=== PATIENT | female | born 1990 | race Caucasian/White ===

== ENCOUNTER 2017-01-12 18:02 | Emergency (ER) | payer BC ==
[2017-01-12] MEDS ORDERED: Sodium Chloride 0.9% 1,000 ML IV ONE (18:07)
[2017-01-12] MEDS ORDERED: Ondansetron 4 MG/2 ML SDV IVPUSH ONE (18:07)
--- NOTE | 2017-01-12 18:08 | EDM.PDOC ---
[id number] Chief Complaint: Abdominal Pain Stated Complaint: PT HAS STOMACH PAINS Time Seen by Provider: 01/12/17 18:07 - History of Present Illness INITIAL COMMENTS - FREE TEXT/NARRATIVE: This is Dr. Kim dictating an addendum note as I'm assuming care of this patient at 7 PM. The patient tells me that her pain is suprapubic and right lower abdomen area and started suddenly 3 days ago and has been intermittent in intensity. She has not had fever chills nausea vomiting dysuria frequency hematuria flank pain or pelvic discharge. The patient is in a monogamous relationship and had an IUD placed in May this year. She said she was tested for all STDs in May and was negative and has no concerns about STDs. She has no vaginal bleeding or periods with her IUD. His been eating and drinking normally and is not taking any medication for the pain. Her last sexual intercourse was last week and does not coincide with the onset of the pain. She has no gynecologic history such as ovarian cysts or endometriosis. The patient describes the pain as dull and barely present when she's sitting still but with certain movements such as walking and straightening it out in bed the pain intensifies. It does not radiate to the left or to the upper abdomen areas. She has no surgical history except for the IUD placement and a procedure on her cervix. She does have a history of HPV. The patient has no back pain. On physical exam she has some tenderness on deep palpation in the right lower quadrant and suprapubically but there is nothing on the left side and nothing in the upper abdomen. She has no CVA tenderness. The patient prefers to sit in bed with her knee slightly bent but is able to move easily without distress. I have seen her lab results were CBC CMP amylase and lipase which are within normal limits. She is currently going to produce a urine sample and is scheduled to go for pelvic ultrasound. I will give her a dose of Toradol as well as IV fluids and she received Zofran earlier. I will continue to monitor these results the patient's course while in the ED. I discussed all testing results with the patient as well as discussed the ultrasound with both the administrative tech and the radiologist Dr. Saxena. It was reported to me by the tach that the patient had a lot of free fluid in that right lower quadrant area but the radiologist felt that it was within normal limits just slightly at the upper margin. The radiologist thought that maybe there was increased vascular congestion consistent with pelvic congestion syndrome but he did not have enough images to evaluate this. The patient does say that the pain does wax and wane and that yesterday she had minimal pain. She does have a scheduled appointment with her molding machine operator in [place] in 6 days so she will follow-up with him and I will give her a disc of her ultrasound here. I will give her Naprosyn for home and have advised her on reasons to return to the ED. I did discuss and offer the patient a CT scan to possibly evaluate other etiologies but she and I discussed that she would like to refrain from this as she has not had a fever anorexia and has no elevated WBC count and the pain has not been consistent. She would like to defer the CAT scan and less symptoms worsen. Impression: Right pelvic pain rule out ruptured ovarian cyst or cystic pelvic congestion syndrome lower abdominal Pain Score (Numeric/FACES): 8 - Related Data Allergies Allergy/AdvReac Type Severity Reaction Status Date / Time amoxicillin Allergy Cannot Verified 01/12/17 18:22 Remember Home Meds: Home Meds . [No Known Home Meds] 01/12/17 [History] ED ROS GENERAL - Review of Systems Review Of Systems: ROS reveals no pertinent complaints other than HPI. ED EXAM, GENERAL - Physical Exam Exam: See Below (See dictation) Course - Vital Signs Last Recorded V/S: Last Vital Signs Temp 36.6 C 01/12/17 21:01 Pulse 73 01/12/17 21:01 Resp 14 01/12/17 21:01 BP 107/68 01/12/17 21:01 Pulse Ox 100 01/12/17 21:01 - Orders/Labs/Meds Labs: Laboratory Tests 01/12/17 01/12/17 01/12/17 Range/Units 18:15 18:15 19:10 WBC 6.53 (4.0-11.0) K/uL RBC 4.21 L (4.30-5.90) M/uL Hgb 12.4 (12.0-16.0) g/dL Hct 36.9 (36.0-46.0) % MCV 87.6 (80.0-98.0) fL MCH 29.5 (27.0-32.0) pg MCHC 33.6 (31.0-37.0) g/dL RDW Std Deviation 40.3 (28.0-62.0) fl RDW Coeff of Roz 13 (11.0-15.0) % Plt Count 175 (150-400) K/uL MPV 10.90 (7.40-12.00) fL Neut % (Auto) 65.3 (48.0-80.0) % Lymph % (Auto) 22.4 (16.0-40.0) % [place] % (Auto) 8.7 (0.0-15.0) % Eos % (Auto) 3.1 (0.0-7.0) % Baso % (Auto) 0.5 (0.0-1.5) % Neut # (Auto) 4.3 (1.4-5.7) K/uL Lymph # (Auto) 1.5 (0.6-2.4) K/uL [place] # (Auto) 0.6 (0.0-0.8) K/uL Eos # (Auto) 0.2 (0.0-0.7) K/uL Baso # (Auto) 0.0 (0.0-0.1) K/uL Nucleated RBC % 0.0 /100WBC Nucleated RBCs # 0 K/uL Sodium 139 (136-146) mmol/L Potassium 3.9 (3.5-5.1) mmol/L Chloride 107 (98-110) mmol/L Carbon Dioxide 22 (21-31) mmol/L BUN 9 (6.0-23.0) mg/dL Creatinine 0.7 (0.6-1.5) mg/dL Est Cr Clr Drug Dosing TNP Estimated GFR (MDRD) > 60.0 ml/min Glucose 88 (60-110) mg/dL Calcium 9.0 (8.8-10.8) mg/dL Total Bilirubin 0.5 (0.1-1.5) mg/dL AST 15 (5-40) IU/L ALT 13 (8-54) IU/L Alkaline Phosphatase 47 (40-150) Total Protein 7.7 (6.0-8.0) g/dL Albumin 4.2 (3.5-5.0) g/dL Globulin 3.5 (2.0-3.5) g/dL Albumin/Globulin Ratio 1.2 L (1.3-2.8) Amylase 38 (10-90) U/L Lipase 8 (7-80) U/L Urine Color Urine Appearance Urine pH (5.0-8.0) Ur Specific [place] (1.001-1.035) Urine Protein (NEGATIVE) mg/dL Urine Glucose (UA) (NEGATIVE) mg/dL Urine Ketones (NEGATIVE) mg/dL Urine Occult Blood (NEGATIVE) Urine Nitrite (NEGATIVE) Urine Bilirubin (NEGATIVE) Urine Urobilinogen (<2.0) EU/dL Ur Leukocyte Esterase (NEGATIVE) Urine RBC (0-2/HPF) Urine WBC (0-5/HPF) Ur Epithelial Cells (NONE-FEW) Amorphous Sediment (NEGATIVE) Urine Bacteria (NEGATIVE) Urine HCG, Qual NEGATIVE (NEGATIVE) 01/12/17 Range/Units 19:10 WBC (4.0-11.0) K/uL RBC (4.30-5.90) M/uL Hgb (12.0-16.0) g/dL Hct (36.0-46.0) % MCV (80.0-98.0) fL MCH (27.0-32.0) pg MCHC (31.0-37.0) g/dL RDW Std Deviation (28.0-62.0) fl RDW Coeff of Roz (11.0-15.0) % Plt Count (150-400) K/uL MPV (7.40-12.00) fL Neut % (Auto) (48.0-80.0) % Lymph % (Auto) (16.0-40.0) % [place] % (Auto) (0.0-15.0) % Eos % (Auto) (0.0-7.0) % Baso % (Auto) (0.0-1.5) % Neut # (Auto) (1.4-5.7) K/uL Lymph # (Auto) (0.6-2.4) K/uL [place] # (Auto) (0.0-0.8) K/uL Eos # (Auto) (0.0-0.7) K/uL Baso # (Auto) (0.0-0.1) K/uL Nucleated RBC % /100WBC Nucleated RBCs # K/uL Sodium (136-146) mmol/L Potassium (3.5-5.1) mmol/L Chloride (98-110) mmol/L Carbon Dioxide (21-31) mmol/L BUN (6.0-23.0) mg/dL Creatinine (0.6-1.5) mg/dL Est Cr Clr Drug Dosing Estimated GFR (MDRD) ml/min Glucose (60-110) mg/dL Calcium (8.8-10.8) mg/dL Total Bilirubin (0.1-1.5) mg/dL AST (5-40) IU/L ALT (8-54) IU/L Alkaline Phosphatase (40-150) Total Protein (6.0-8.0) g/dL Albumin (3.5-5.0) g/dL Globulin (2.0-3.5) g/dL Albumin/Globulin Ratio (1.3-2.8) Amylase (10-90) U/L Lipase (7-80) U/L Urine Color YELLOW Urine Appearance CLEAR Urine pH 6.0 (5.0-8.0) Ur Specific [place] 1.020 (1.001-1.035) Urine Protein NEGATIVE (NEGATIVE) mg/dL Urine Glucose (UA) NEGATIVE (NEGATIVE) mg/dL Urine Ketones NEGATIVE (NEGATIVE) mg/dL Urine Occult Blood TRACE-INTACT (NEGATIVE) Urine Nitrite NEGATIVE (NEGATIVE) Urine Bilirubin NEGATIVE (NEGATIVE) Urine Urobilinogen 0.2 (<2.0) EU/dL Ur Leukocyte Esterase TRACE (NEGATIVE) Urine RBC 0-1 (0-2/HPF) Urine WBC 0-1 (0-5/HPF) Ur Epithelial Cells MODERATE (NONE-FEW) Amorphous Sediment FEW (NEGATIVE) Urine Bacteria FEW (NEGATIVE) Urine HCG, Qual (NEGATIVE) Meds: Medications Discontinued Medications Generic Name Dose Route Start Last Admin Trade Name Freq PRN Reason Stop Dose Admin Sodium Chloride 1,000 mls @ 999 mls/hr 01/12/17 18:07 01/12/17 19:22 Normal Saline IV 01/12/17 19:07 999 mls/hr STAT ONE Administration Ketorolac Tromethamine 30 mg 01/12/17 19:16 01/12/17 20:28 Toradol IVPUSH 01/12/17 19:17 30 mg ONETIME ONE Administration Ondansetron HCl 8 mg 01/12/17 18:07 01/12/17 19:22 Messi IVPUSH 01/12/17 18:08 8 mg ONETIME ONE Administration Departure - Departure Time of Disposition: 20:45 Disposition: Home, Self-Care 01 Condition: Good Clinical Impression: Pelvic pain - Discharge Information Instructions: Pelvic Pain, Female, [id number] Referrals: PCP,None [Primary Care Provider] - Forms: ED Department Discharge Additional Instructions: The following information is given to patients seen in the emergency department who are being discharged to home. This information is to outline your options for follow-up care. We provide all patients seen in our emergency department with a follow-up referral. The need for follow-up, as well as the timing and circumstances, are variable depending upon the specifics of your emergency department visit. If you don't have a primary care physician on staff, we will provide you with a referral. We always advise you to contact your personal physician following an emergency department visit to inform them of the circumstance of the visit and for follow-up with them and/or the need for any referrals to a consulting specialist. The emergency department will also refer you to a specialist when appropriate. This referral assures that you have the opportunity for followup care with a specialist. All of these measure are taken in an effort to provide you with optimal care, which includes your followup. Under all circumstances we always encourage you to contact your private physician who remains a resource for coordinating your care. When calling for followup care, please make the office aware that this follow-up is from your recent emergency room visit. If for any reason you are refused follow-up, please contact the [facility] emergency department at and ask to speak to the emergency department charge nurse. [facility] [address] [address] Please keep your scheduled appointment with her molding machine operator in [place] or call and schedule an appointment with our molding machine operator. Return to ER as needed and as we discussed. Use the Naprosyn you have been prescribed for discomfort push hydration and rest. <Janes Allen - Last Filed: 01/29/17 22:00> ED HPI GENERAL MEDICAL PROBLEM - General Source of Information: Reports: Patient - History of Present Illness INITIAL COMMENTS - FREE TEXT/NARRATIVE: HISTORY AND PHYSICAL: History of present illness: []Patient presented with abdominal pain/pelvic pain just prior to shift change and had concerns involving her IUD placement, I did/will place serum lab orders ultimately patient will be signed out to Dr. Naranjo to follow lab and imaging Review of systems: As per history of present illness and below otherwise all systems reviewed and negative. Past medical history: As per history of present illness and as reviewed below otherwise noncontributory. Surgical history: As per history of present illness and as reviewed below otherwise noncontributory. Social history: No reported history of drug or alcohol abuse. Family history: As per history of present illness and as reviewed below otherwise noncontributory. Physical exam: HEENT: Atraumatic, normocephalic, pupils reactive, negative for conjunctival pallor or scleral icterus, mucous membranes moist, throat clear, neck supple, nontender, trachea midline. Lungs: Clear to auscultation, breath sounds equal bilaterally, chest nontender. Heart: S1S2, regular, negative for clicks, rubs, or JVD. Abdomen: Soft, nondistended, nontender. Negative for masses or hepatosplenomegaly. Negative for costovertebral tenderness. Pelvis: Stable nontender. Genitourinary: Deferred. Rectal: Deferred. Extremities: Atraumatic, negative for cords or calf pain. Neurovascular unremarkable. Neuro: Awake, alert, oriented. Cranial nerves II through XII unremarkable. Cerebellum unremarkable. Motor and sensory unremarkable throughout. Exam nonfocal. Diagnostics: []CBC, CMP, amylase, lipase, UA HCG Therapeutics: [] Impression: []Abdominal pain Definitive disposition and diagnosis as appropriate pending reevaluation and review of above. Course - Vital Signs Last Recorded V/S: Last Vital Signs Temp 36.6 C 01/12/17 21:01 Pulse 73 01/12/17 21:01 Resp 14 01/12/17 21:01 BP 107/68 01/12/17 21:01 Pulse Ox 100 01/12/17 21:01 - Orders/Labs/Meds Labs: Laboratory Tests 01/12/17 01/12/17 01/12/17 Range/Units 18:15 18:15 19:10 WBC 6.53 (4.0-11.0) K/uL RBC 4.21 L (4.30-5.90) M/uL Hgb 12.4 (12.0-16.0) g/dL Hct 36.9 (36.0-46.0) % MCV 87.6 (80.0-98.0) fL MCH 29.5 (27.0-32.0) pg MCHC 33.6 (31.0-37.0) g/dL RDW Std Deviation 40.3 (28.0-62.0) fl RDW Coeff of Roz 13 (11.0-15.0) % Plt Count 175 (150-400) K/uL MPV 10.90 (7.40-12.00) fL Neut % (Auto) 65.3 (48.0-80.0) % Lymph % (Auto) 22.4 (16.0-40.0) % [place] % (Auto) 8.7 (0.0-15.0) % Eos % (Auto) 3.1 (0.0-7.0) % Baso % (Auto) 0.5 (0.0-1.5) % Neut # (Auto) 4.3 (1.4-5.7) K/uL Lymph # (Auto) 1.5 (0.6-2.4) K/uL [place] # (Auto) 0.6 (0.0-0.8) K/uL Eos # (Auto) 0.2 (0.0-0.7) K/uL Baso # (Auto) 0.0 (0.0-0.1) K/uL Nucleated RBC % 0.0 /100WBC Nucleated RBCs # 0 K/uL Sodium 139 (136-146) mmol/L Potassium 3.9 (3.5-5.1) mmol/L Chloride 107 (98-110) mmol/L Carbon Dioxide 22 (21-31) mmol/L BUN 9 (6.0-23.0) mg/dL Creatinine 0.7 (0.6-1.5) mg/dL Est Cr Clr Drug Dosing TNP Estimated GFR (MDRD) > 60.0 ml/min Glucose 88 (60-110) mg/dL Calcium 9.0 (8.8-10.8) mg/dL Total Bilirubin 0.5 (0.1-1.5) mg/dL AST 15 (5-40) IU/L ALT 13 (8-54) IU/L Alkaline Phosphatase 47 (40-150) Total Protein 7.7 (6.0-8.0) g/dL Albumin 4.2 (3.5-5.0) g/dL Globulin 3.5 (2.0-3.5) g/dL Albumin/Globulin Ratio 1.2 L (1.3-2.8) Amylase 38 (10-90) U/L Lipase 8 (7-80) U/L Urine Color Urine Appearance Urine pH (5.0-8.0) Ur Specific [place] (1.001-1.035) Urine Protein (NEGATIVE) mg/dL Urine Glucose (UA) (NEGATIVE) mg/dL Urine Ketones (NEGATIVE) mg/dL Urine Occult Blood (NEGATIVE) Urine Nitrite (NEGATIVE) Urine Bilirubin (NEGATIVE) Urine Urobilinogen (<2.0) EU/dL Ur Leukocyte Esterase (NEGATIVE) Urine RBC (0-2/HPF) Urine WBC (0-5/HPF) Ur Epithelial Cells (NONE-FEW) Amorphous Sediment (NEGATIVE) Urine Bacteria (NEGATIVE) Urine HCG, Qual NEGATIVE (NEGATIVE) 01/12/17 Range/Units 19:10 WBC (4.0-11.0) K/uL RBC (4.30-5.90) M/uL Hgb (12.0-16.0) g/dL Hct (36.0-46.0) % MCV (80.0-98.0) fL MCH (27.0-32.0) pg MCHC (31.0-37.0) g/dL RDW Std Deviation (28.0-62.0) fl RDW Coeff of Roz (11.0-15.0) % Plt Count (150-400) K/uL MPV (7.40-12.00) fL Neut % (Auto) (48.0-80.0) % Lymph % (Auto) (16.0-40.0) % [place] % (Auto) (0.0-15.0) % Eos % (Auto) (0.0-7.0) % Baso % (Auto) (0.0-1.5) % Neut # (Auto) (1.4-5.7) K/uL Lymph # (Auto) (0.6-2.4) K/uL [place] # (Auto) (0.0-0.8) K/uL Eos # (Auto) (0.0-0.7) K/uL Baso # (Auto) (0.0-0.1) K/uL Nucleated RBC % /100WBC Nucleated RBCs # K/uL Sodium (136-146) mmol/L Potassium (3.5-5.1) mmol/L Chloride (98-110) mmol/L Carbon Dioxide (21-31) mmol/L BUN (6.0-23.0) mg/dL Creatinine (0.6-1.5) mg/dL Est Cr Clr Drug Dosing Estimated GFR (MDRD) ml/min Glucose (60-110) mg/dL Calcium (8.8-10.8) mg/dL Total Bilirubin (0.1-1.5) mg/dL AST (5-40) IU/L ALT (8-54) IU/L Alkaline Phosphatase (40-150) Total Protein (6.0-8.0) g/dL Albumin (3.5-5.0) g/dL Globulin (2.0-3.5) g/dL Albumin/Globulin Ratio (1.3-2.8) Amylase (10-90) U/L Lipase (7-80) U/L Urine Color YELLOW Urine Appearance CLEAR Urine pH 6.0 (5.0-8.0) Ur Specific [place] 1.020 (1.001-1.035) Urine Protein NEGATIVE (NEGATIVE) mg/dL Urine Glucose (UA) NEGATIVE (NEGATIVE) mg/dL Urine Ketones NEGATIVE (NEGATIVE) mg/dL Urine Occult Blood TRACE-INTACT (NEGATIVE) Urine Nitrite NEGATIVE (NEGATIVE) Urine Bilirubin NEGATIVE (NEGATIVE) Urine Urobilinogen 0.2 (<2.0) EU/dL Ur Leukocyte Esterase TRACE (NEGATIVE) Urine RBC 0-1 (0-2/HPF) Urine WBC 0-1 (0-5/HPF) Ur Epithelial Cells MODERATE (NONE-FEW) Amorphous Sediment FEW (NEGATIVE) Urine Bacteria FEW (NEGATIVE) Urine HCG, Qual (NEGATIVE) Meds: Medications Discontinued Medications Generic Name Dose Route Start Last Admin Trade Name Freq PRN Reason Stop Dose Admin Sodium Chloride 1,000 mls @ 999 mls/hr 01/12/17 18:07 01/12/17 19:22 Normal Saline IV 01/12/17 19:07 999 mls/hr STAT ONE Administration Ketorolac Tromethamine 30 mg 01/12/17 19:16 01/12/17 20:28 Toradol IVPUSH 01/12/17 19:17 30 mg ONETIME ONE Administration Ondansetron HCl 8 mg 01/12/17 18:07 01/12/17 19:22 Zofran IVPUSH 01/12/17 18:08 8 mg ONETIME ONE Administration
[2017-01-12 18:57] LABS: CHLORIDE,CL 107 mmol/L (98-110); SODIUM,NA 139 mmol/L (136-146)
[2017-01-12] MEDS ORDERED: Ketorolac 30 MG/ML SDV IVPUSH ONE (19:16)
[2017-01-13 02:30] VITALS: BP 107/68
--- NOTE | 2017-01-13 09:41 | US ---
EXAM DATE: 01/12/17 PATIENT'S AGE: 26 Patient: ANTHONY THAO Facility: [place], [place] Site . Site : 1990 Study: US Pelvis [id number]/25/2017 8:14:51 PM Ordering Physician: Milly Marrero Final Report: INDICATION: Lower abdominal pain. Intermittent lower abdominal pain since 01/09/2017. IUD placed May 2016. TECHNIQUE: Ultrasound pelvis transabdominal and transvaginal for better assessment or to better visualize the endometrium. Real-time sonographic images with spectral and color Doppler imaging of the ovaries were obtained. COMPARISON: None. FINDINGS: Uterus: Anteverted position, measuring 10.0 x 6.9 x 5.2 cm. Normal echotexture of the myometrium. No masses. Endometrium: Transvaginal imaging was performed to better evaluate the endometrium. Endometrial thickness is not measured, evaluation limited due to IUD. Satisfactory positioning of the IUD within the endometrial canal. Right ovary: 4.9 x 3.1 x 2.9 cm. No ovarian or adnexal masses. Normal arterial and venous blood flow. Left ovary: 3.5 x 2.0 x 2.9 cm. No ovarian or adnexal masses. Normal arterial and venous blood flow. Cul-de-sac: Mild free fluid. IMPRESSION: 1. Satisfactory placement of IUD within the endometrial canal. 2. Normal sonographic appearance of both ovaries. Arterial and venous flow to both ovaries intact. Dictated by Miller Saxena MD @ 01/12/2017 8:24:47 PM Dictated by: Miller Saxena MD @ 01/12/2017 20:24:54 (Electronic Signature) Report Signed by Proxy. [facility]
== END 2017-01-12 21:02 | disposition home or self-care (01) ==
LOC: MW.ED 18:02
DX: R10.2 Pelvic and perineal pain (principal); R10.31 Right lower quadrant pain; Z88.1 Allergy status to other antibiotic agents
CPT/HCPCS: 36415; 76856; 80053; 81001; 81025; 82150; 83690; 85025; 96374; 96375; 99284; J1885; J2405; J7040

== ENCOUNTER 2020-04-19 21:59 | Inpatient (IN) | payer OTHER ==
[2020-04-19] MEDS: Lactated Ringers 1,000 ML IV SCH (22:42)
[2020-04-19] MEDS ORDERED: Ondansetron 4 MG Tab.DIS PO PRN (22:50)
[2020-04-19] MEDS ORDERED: Butorphanol 1 MG/ML SDV IVPUSH PRN (22:50)
[2020-04-19] MEDS ORDERED: Nalbuphine 10 MG/1 ML Vial IVPUSH PRN (22:50)
[2020-04-19] MEDS ORDERED: Sodium Chloride 0.9% 10 ML Syringe FLUSH PRN (22:50)
[2020-04-19] MEDS ORDERED: Lidocaine 1% 50 ML MDV INJECT PRN (22:50)
[2020-04-19] MEDS ORDERED: Sodium Chloride 0.9% 10 ML SDV IV PRN (22:50)
[2020-04-19] MEDS ORDERED: Water For Irrigation,Sterile 1,000 ML Container IRR PRN (22:50)
[2020-04-19] MEDS ORDERED: Misoprostol 200 MCG Tab PO PRN (22:50)
[2020-04-19] MEDS ORDERED: Tranexamic Acid 1,000 MG in Sodium Chloride 0.9% 100 ML IV PRN (22:50)
[2020-04-19] MEDS ORDERED: Carboprost Tromethamine 250 MCG/1 ML Amp IM PRN (22:50)
[2020-04-19] MEDS ORDERED: Methylergonovine 0.2 MG/1 ML Amp IM PRN (22:50)
[2020-04-19] MEDS ORDERED: Sodium Chloride 0.9% 2.5 ML Syringe FLUSH PRN (22:50)
[2020-04-19] MEDS ORDERED: Oxytocin/0.9 % Sodium Chloride 30 UNIT/500 ML BAG IV SCH (23:00)
[2020-04-19] MEDS ORDERED: Ropivacaine HCl/PF 100 ML ONE (23:11)
[2020-04-19] MEDS ORDERED: fentaNYL 100 MCG/2 ML SDV ONE (23:11)
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
[2020-04-19] MEDS ORDERED: Vancomycin 1.5 GM in Sodium Chloride 0.9% 500 ML IV SCH (23:45)
--- NOTE | 2020-04-19 23:46 | PCM.PRNOTE ---
- Free Text/Narrative Note: Anes NOte Patient requests epidural for L&D. Sitting position, level L3-L4 midline approach. Sterile teechnique. Chloraprep scrub to lumbar area. Sterile fenestrated drape applied. Epidural space easily achieved using SONYA technique. SONYA at 3 cm. Cath threaded 5 cm with ease. Cath secured using sterile clear adhesive dressing. [id number] 3 cc 1.5% lido with epi negative. 2335 LOad 10 cc 0.2% ropivicaine with 1 mcg cc fentanyl in slow divided doses. 2345 Pump started with 90 cc same solution. Rate is 8 cc hr with 6 cc q 20 min prn bolus. [place] well. Time with patient [id number] Wing Hoskins CRNA
[2020-04-20] MEDS: Lactated Ringers 1,000 ML IV SCH ×2 (00:12→03:35)
--- NOTE | 2020-04-20 05:25 | PCM.DEL ---
L & D Note - General Info Date of Service: 04/20/20 Mother's Due Date: 05/02/20 - Delivery Note Labor: Spontaneous Delivery Outcome: Livebirth Infant Delivery Method: Spontaneous Vaginal Delivery-Single Delivery Mode: Spontaneous Presentation: Left Occiput Anterior (RENATA) Nuchal Cord: None Prep: Other Anesthesia Type: Epidural Amniotic Fluid Description: Bloody Episiotomy Type: None Laceration: None Placenta: Spontaneous, Manual Removal (membranes retained, manually extracted), Retained Cord: 3 Vessels Estimated Blood Loss: 100 Resuscitation Needed: No : Suctioned Score 1 min: 9 Score 5 min: 9 Post Delivery Events: Other (see below) (COVID positive) Delivery Comments (Free Text/Narrative):: Liveborn male - General Info Date of Service: 04/20/20 - Patient Data Weight - Most Recent: 79.379 kg Lab Results Last 24 Hours: Laboratory Results - last 24 hr 04/19/20 04/19/20 04/19/20 Range/Units 22:08 23:00 23:00 WBC 8.88 (4.0-11.0) K/uL RBC 3.87 L (4.30-5.90) M/uL Hgb 11.1 L (12.0-16.0) g/dL Hct 34.4 L (36.0-46.0) % MCV 88.9 (80.0-98.0) fL MCH 28.7 (27.0-32.0) pg MCHC 32.3 (31.0-37.0) g/dL RDW Std Deviation 46.7 (28.0-62.0) fl RDW Coeff of Roz 15 (11.0-15.0) % Plt Count 161 (150-400) K/uL MPV 11.80 (7.40-12.00) fL Nucleated RBC % 0.0 /100WBC Nucleated RBCs # 0 K/uL SARS-CoV-2 RNA (RAJAN) POSITIVE H (NEGATIVE) Blood Type A POSITIVE Antibody Screen NEGATIVE Med Orders - Current: Current Medications Butorphanol Tartrate (Stadol) 1 mg IVPUSH Q1H PRN PRN Reason: Pain Carboprost Tromethamine (Hemabate Ds) 250 mcg IM ASDIRECTED PRN PRN Reason: Post Hemorrhage Lactated Ringer's (Ringers, Lactated) 1,000 mls @ 150 mls/hr IV ASDIRECTED [facility] Last Admin: 04/20/20 03:35 Dose: 125 mls/hr Documented by: Oxytocin/Sodium Chloride (Oxytocin 30 Unit/500 Ml-Ns) 30 unit in 500 mls @ 999 mls/hr IV TITRATE [facility] Last Admin: 04/20/20 04:42 Dose: 999 mls/hr Documented by: Tranexamic Acid 1,000 mg/ (Sodium Chloride) 110 mls @ 660 mls/hr IV ONETIME PRN PRN Reason: Bleeding Vancomycin HCl 1.5 gm/ Sodium (Chloride) 500 mls @ 333.333 mls/hr IV Q8H [facility] Lidocaine HCl (Xylocaine 1%) 50 ml INJECT ONETIME PRN PRN Reason: Laceration repair Methylergonovine Maleate (Methergine) 0.2 mg IM ASDIRECTED PRN PRN Reason: Post Hemorrhage Misoprostol (Cytotec) 200 mcg PO ONETIME PRN PRN Reason: Post Hemorrhage Nalbuphine HCl (Nubain) 10 mg IVPUSH Q1H PRN PRN Reason: Pain (severe 7-10) Ondansetron HCl (Zofran Odt) 4 mg PO Q4H PRN PRN Reason: Nausea/Vomiting Sodium Chloride (Saline Flush) 10 ml FLUSH ASDIRECTED PRN PRN Reason: Keep Vein Open Sodium Chloride (Saline Flush) 2.5 ml FLUSH ASDIRECTED PRN PRN Reason: Keep Vein Open Sodium Chloride (Normal Saline) 10 ml IV ASDIRECTED PRN PRN Reason: IV Use Sterile Water (Sterile Water For Irrigation) 1,000 ml IRR ASDIRECTED PRN PRN Reason: delivery Discontinued Medications Fentanyl (Sublimaze) Confirm Administered Dose 100 mcg .ROUTE .STK-MED ONE Stop: 04/19/20 23:12 Vancomycin HCl 1.5 gm/ Sodium (Chloride) 500 mls @ 333.333 mls/hr IV Q8H [facility] Ropivacaine (Naropin 0.2%) Confirm Administered Dose 100 mls @ as directed .ROUTE .STK-MED ONE Stop: 04/19/20 23:12 - Problem List & Annotations (1) Vaginal delivery SNOMED Code(s): 316366928 Code(s): O80 - ENCOUNTER FOR FULL-TERM UNCOMPLICATED DELIVERY Status: Acute Current Visit: Yes (2) Severe acute respiratory syndrome coronavirus 2 (SARS-CoV-2) RNA detected SNOMED Code(s): 9629052731820180, 115966674 Code(s): U07.1 - COVID-19 Status: Acute Current Visit: Yes - Problem List Review Problem List Initiated/Reviewed/Updated: Yes - My Orders Last 24 Hours: My Active Orders 04/19/20 22:13 Up ad Angely [RC] ASDIRECTED Vital Signs [RC] PER UNIT ROUTINE Resuscitation Status Routine 04/19/20 22:50 Patient Status [ADT] Routine May Shower [RC] ASDIRECTED Notify Provider [RC] PRN Up ad Angely [RC] ASDIRECTED Vital Signs [RC] PER UNIT ROUTINE Butorphanol [Stadol] 1 mg IVPUSH Q1H PRN Carboprost Tromethamine [Hemabate DS] 250 mcg IM ASDIRECTED PRN Lidocaine 1% [Xylocaine 1%] 50 ml INJECT ONETIME PRN Methylergonovine [Methergine] 0.2 mg IM ASDIRECTED PRN Nalbuphine [Nubain] 10 mg IVPUSH Q1H PRN Ondansetron [Zofran ODT] 4 mg PO Q4H PRN Sodium Chloride 0.9% [Normal Saline] 10 ml IV ASDIRECTED PRN Sodium Chloride 0.9% [Saline Flush] 10 ml FLUSH ASDIRECTED PRN Sodium Chloride 0.9% [Saline Flush] 2.5 ml FLUSH ASDIRECTED PRN Tranexamic Acid [Cyklokapron] 1,000 mg Sodium Chloride 0.9% [Normal Saline] 100 ml IV ONETIME Water For Irrigation,Sterile [Sterile Water for Irrigation] 1,000 ml IRR ASDIRECTED PRN miSOPROStoL [Cytotec] 200 mcg PO ONETIME PRN Scalp Electrode [WOMSER] Per Unit Routine Peripheral IV Insertion Adult [OM.PC] Routine 04/19/20 23:00 RPR (SYPHILIS SERO) W/ RFLX [REF] Routine Lactated Ringers [Ringers, Lactated] 1,000 ml IV ASDIRECTED Oxytocin/0.9 % Sodium Chloride [Oxytocin 30 Unit/500 ML-NS] 30 unit in 500 ml IV TITRATE 04/19/20 23:45 Vancomycin 1.5 gm Sodium Chloride 0.9% [Normal Saline] 500 ml IV Q8H 04/20/20 Breakfast Clear Liquid Diet [DIET] Guest Tray [DIET]
[2020-04-20] MEDS ORDERED: Ibuprofen 800 MG Tab PO PRN (05:27)
[2020-04-20] MEDS ORDERED: Witch Hazel Medicated Pads 40/Jar TOP PRN (05:27)
[2020-04-20] MEDS ORDERED: Docusate Sodium 100 MG Cap PO PRN (05:27)
[2020-04-20] MEDS ORDERED: Bisacodyl 10 MG Supp RECTAL PRN (05:27)
[2020-04-20] MEDS ORDERED: Methylergonovine 0.2 MG/1 ML Amp IM PRN (05:27)
[2020-04-20] MEDS ORDERED: Tranexamic Acid 1,000 MG in Sodium Chloride 0.9% 100 ML IV PRN (05:27)
[2020-04-20] MEDS ORDERED: Acetaminophen 500 MG Tab PO PRN (05:27)
[2020-04-20] MEDS ORDERED: Ibuprofen 400 MG Tab PO PRN (05:27)
[2020-04-20] MEDS ORDERED: Lanolin 100% Cream 7 GM Tube TOP PRN (05:27)
[2020-04-20] MEDS ORDERED: Benzocaine/Menthol 20%-0.5% Spray 78 GM Cannister TOP PRN (05:27)
[2020-04-20] MEDS ORDERED: Vancomycin 1.5 GM in Sodium Chloride 0.9% 500 ML IV SCH (06:00)
[2020-04-20] MEDS: Acetaminophen 500 MG Tab PO PRN ×4 (06:39→23:46)
--- NOTE | 2020-04-20 07:32 | PCM48HPAN ---
Post Anesthesia Note - EVALUATION WITHIN 48HRS OF ANESTHETIC Vital Signs in Normal Range: Yes Patient Participated in Evaluation: Yes Respiratory Function Stable: Yes Airway Patent: Yes Cardiovascular Function Stable: Yes Hydration Status Stable: Yes Pain Control Satisfactory: Yes Nausea and Vomiting Control Satisfactory: Yes Mental Status Recovered: Yes
[2020-04-20] MEDS: Enoxaparin 40 MG/0.4 ML Syringe SUBCUT SCH (11:07)
--- NOTE | 2020-04-20 11:50 | PCM.PNPP ---
- General Info Date of Service: 04/20/20 Subjective Update: denies cough or muscle aches. Functional Status: Reports: Pain Controlled, Tolerating Diet, Ambulating, Urinating - Review of Systems General: Reports: No Symptoms HEENT: Reports: No Symptoms Pulmonary: Reports: No Symptoms Cardiovascular: Reports: No Symptoms Gastrointestinal: Reports: No Symptoms Genitourinary: Reports: No Symptoms Musculoskeletal: Reports: No Symptoms Skin: Reports: No Symptoms Neurological: Reports: No Symptoms Psychiatric: Reports: No Symptoms - General Info Date of Service: 04/20/20 - Patient Data Vital Signs - Most Recent: Last Vital Signs Temp 36.6 C 04/20/20 08:40 Pulse 87 04/20/20 08:40 Resp 16 04/20/20 08:40 BP 105/63 04/20/20 08:40 Pulse Ox 100 04/20/20 08:40 Weight - Most Recent: 79.379 kg Lab Results - Last 24 Hours: Laboratory Results - last 24 hr 04/19/20 04/19/20 04/19/20 Range/Units 22:08 23:00 23:00 WBC 8.88 (4.0-11.0) K/uL RBC 3.87 L (4.30-5.90) M/uL Hgb 11.1 L (12.0-16.0) g/dL Hct 34.4 L (36.0-46.0) % MCV 88.9 (80.0-98.0) fL MCH 28.7 (27.0-32.0) pg MCHC 32.3 (31.0-37.0) g/dL RDW Std Deviation 46.7 (28.0-62.0) fl RDW Coeff of Roz 15 (11.0-15.0) % Plt Count 161 (150-400) K/uL MPV 11.80 (7.40-12.00) fL Nucleated RBC % 0.0 /100WBC Nucleated RBCs # 0 K/uL SARS-CoV-2 RNA (RAJAN) POSITIVE H (NEGATIVE) Blood Type A POSITIVE Antibody Screen NEGATIVE Med Orders - Current: Current Medications Acetaminophen (Tylenol Extra Strength) 500 mg PO Q4H PRN PRN Reason: Pain Acetaminophen (Tylenol Extra Strength) 1,000 mg PO Q4H PRN PRN Reason: Pain Last Admin: 04/20/20 06:39 Dose: 1,000 mg Documented by: Benzocaine/Menthol (Dermoplast Pain Relief 20%-0.5% [place]) 78 gm TOP ASDIRECTED PRN PRN Reason: Perineal Comfort Measure Bisacodyl (Dulcolax) 10 mg RECTAL ONETIME PRN PRN Reason: Constipation Docusate Sodium (Colace) 100 mg PO BID PRN PRN Reason: Constipation Emollient Ointment (Lansinoh Hpa) 0 gm TOP ASDIRECTED PRN PRN Reason: Sore Nipples Enoxaparin Sodium (Lovenox) 40 mg SUBCUT Q24H [facility] Last Admin: 04/20/20 11:07 Dose: 40 mg Documented by: Tranexamic Acid 1,000 mg/ (Sodium Chloride) 110 mls @ 660 mls/hr IV ONETIME PRN PRN Reason: Bleeding Methylergonovine Maleate (Methergine) 0.2 mg IM ONETIME PRN PRN Reason: Excessive Vaginal Bleeding Witch Rita (Tucks) 1 pad TOP ASDIRECTED PRN PRN Reason: comfort care Discontinued Medications Butorphanol Tartrate (Stadol) 1 mg IVPUSH Q1H PRN PRN Reason: Pain Carboprost Tromethamine (Hemabate Ds) 250 mcg IM ASDIRECTED PRN PRN Reason: Post Hemorrhage Fentanyl (Sublimaze) Confirm Administered Dose 100 mcg .ROUTE .STK-MED ONE Stop: 04/19/20 23:12 Lactated Ringer's (Ringers, Lactated) 1,000 mls @ 150 mls/hr IV ASDIRECTED [facility] Last Admin: 04/20/20 03:35 Dose: 125 mls/hr Documented by: Oxytocin/Sodium Chloride (Oxytocin 30 Unit/500 Ml-Ns) 30 unit in 500 mls @ 999 mls/hr IV TITRATE [facility] Last Admin: 04/20/20 04:42 Dose: 999 mls/hr Documented by: Tranexamic Acid 1,000 mg/ (Sodium Chloride) 110 mls @ 660 mls/hr IV ONETIME PRN PRN Reason: Bleeding Vancomycin HCl 1.5 gm/ Sodium (Chloride) 500 mls @ 333.333 mls/hr IV Q8H [facility] Ropivacaine (Naropin 0.2%) Confirm Administered Dose 100 mls @ as directed .ROUTE .STK-MED ONE Stop: 04/19/20 23:12 Vancomycin HCl 1.5 gm/ Sodium (Chloride) 500 mls @ 333.333 mls/hr IV Q8H [facility] Stop: 04/20/20 23:59 Last Admin: 04/20/20 06:40 Dose: 333.333 mls/hr Documented by: Ibuprofen (Motrin) 400 mg PO Q4H PRN PRN Reason: Pain Ibuprofen (Motrin) 800 mg PO Q6H PRN PRN Reason: Pain Lidocaine HCl (Xylocaine 1%) 50 ml INJECT ONETIME PRN PRN Reason: Laceration repair Methylergonovine Maleate (Methergine) 0.2 mg IM ASDIRECTED PRN PRN Reason: Post Hemorrhage Misoprostol (Cytotec) 200 mcg PO ONETIME PRN PRN Reason: Post Hemorrhage Nalbuphine HCl (Nubain) 10 mg IVPUSH Q1H PRN PRN Reason: Pain (severe 7-10) Ondansetron HCl (Zofran Odt) 4 mg PO Q4H PRN PRN Reason: Nausea/Vomiting Sodium Chloride (Saline Flush) 10 ml FLUSH ASDIRECTED PRN PRN Reason: Keep Vein Open Sodium Chloride (Saline Flush) 2.5 ml FLUSH ASDIRECTED PRN PRN Reason: Keep Vein Open Sodium Chloride (Normal Saline) 10 ml IV ASDIRECTED PRN PRN Reason: IV Use Sterile Water (Sterile Water For Irrigation) 1,000 ml IRR ASDIRECTED PRN PRN Reason: delivery - Interaction Disposition, : [place] in Room with Family Infant Interaction: Holding Infant Infant Feeding: Breastfed ; Nursed Well Support Person: - Recovery Exam Fundal Tone: Firm Fundal Level: 1 Fingerbreadths Above Umbilicus Fundal Placement: Midline Lochia Amount: Small Lochia Color: Rubra/Red Perineum Description: Intact, Minimal Bruising/Swelling Episiotomy/Laceration: None Bladder Status: Voiding Urinary Elimination: Voided - Exam General: Alert, Oriented Neck: Supple Lungs: Normal Respiratory Effort GI/Abdominal Exam: Soft, Non-Tender, No Organomegaly, No Distention Extremities: Normal Range of Motion, Non-Tender, No Pedal Edema, Normal Capillary Refill Wound/Incisions: Healing Well Psy/Mental Status: Alert, Normal Affect, Normal Mood - Problem List & Annotations (1) Vaginal delivery SNOMED Code(s): 337257120 Code(s): O80 - ENCOUNTER FOR FULL-TERM UNCOMPLICATED DELIVERY Status: Acute Current Visit: Yes (2) Severe acute respiratory syndrome coronavirus 2 (SARS-CoV-2) RNA detected SNOMED Code(s): 5538961653397770, 763792491 Code(s): U07.1 - COVID-19 Status: Acute Current Visit: Yes - Problem List Review Problem List Initiated/Reviewed/Updated: Yes - My Orders Last 24 Hours: My Active Orders 04/19/20 23:00 RPR (SYPHILIS SERO) W/ RFLX [REF] Routine 04/20/20 05:27 Patient Status [ADT] Routine May Shower [RC] ASDIRECTED Up ad Angely [RC] ASDIRECTED Vital Signs [RC] Q8H Acetaminophen [Tylenol Extra Strength] 1,000 mg PO Q4H PRN Acetaminophen [Tylenol Extra Strength] 500 mg PO Q4H PRN Benzocaine/Menthol [Dermoplast Pain Relief 20%-0.5% [place]] 78 gm TOP ASDIRECTED PRN Docusate Sodium [Colace] 100 mg PO BID PRN Lanolin [Lansinoh HPA] See Dose Instructions TOP ASDIRECTED PRN Methylergonovine [Methergine] 0.2 mg IM ONETIME PRN Tranexamic Acid [Cyklokapron] 1,000 mg Sodium Chloride 0.9% [Normal Saline] 100 ml IV ONETIME bisacodyL [Dulcolax] 10 mg RECTAL ONETIME PRN witch Rita [Tucks] 1 pad TOP ASDIRECTED PRN Assess Lochia [WOMSER] Per Unit Routine Assess Uterine Involution [WOMSER] Per Unit Routine Perineal Care [OM.PC] Per Unit Routine Peripheral IV Discontinue [OM.PC] Routine Resuscitation Status Routine 04/20/20 Breakfast Guest Tray [DIET] Regular Diet [DIET] 04/20/20 11:30 Enoxaparin [Lovenox] 40 mg SUBCUT Q24H 04/21/20 05:11 HEMOGLOBIN/HEMATOCRIT,HH [HEME] Timed - Assessment Assessment:: PPD#0 after , COVID positive asymptomatic, well with precautions to mask and sanitize, quarantining in the room. Minimal lochia, on lovenox due to COVID - Plan Plan:: Continue care, discussed limited data related to care with MERE. Given clotting that was noted at the time of delivery, I will keep her on Lovenox until 6 weeks . Discussed injection learning tomorrow at the time of Lovenox dose.
[2020-04-21] MEDS: Acetaminophen 500 MG Tab PO PRN ×4 (03:04→20:44)
--- NOTE | 2020-04-21 11:04 | PCM.PNPP ---
- General Info Date of Service: 04/21/20 Subjective Update: minimal lochia, and pumping, cramping is bothersome due to no NSAID's using heating pad and Tylenol. Functional Status: Reports: Pain Controlled, Tolerating Diet, Ambulating, Urinating - Review of Systems General: Reports: No Symptoms HEENT: Reports: No Symptoms Pulmonary: Reports: No Symptoms Cardiovascular: Reports: No Symptoms Gastrointestinal: Reports: No Symptoms Genitourinary: Reports: No Symptoms Musculoskeletal: Reports: No Symptoms Skin: Reports: No Symptoms Neurological: Reports: No Symptoms Psychiatric: Reports: No Symptoms - General Info Date of Service: 04/21/20 - Patient Data Vital Signs - Most Recent: Last Vital Signs Temp 36.2 C 04/21/20 09:32 Pulse 71 04/21/20 09:32 Resp 16 04/21/20 09:32 BP 103/71 04/21/20 09:32 Pulse Ox 100 04/21/20 09:32 Weight - Most Recent: 79.379 kg Lab Results - Last 24 Hours: Laboratory Results - last 24 hr 04/21/20 Range/Units 05:20 Hgb 10.0 L (12.0-16.0) g/dL Hct 30.7 L (36.0-46.0) % Med Orders - Current: Current Medications Acetaminophen (Tylenol Extra Strength) 500 mg PO Q4H PRN PRN Reason: Pain Acetaminophen (Tylenol Extra Strength) 500 mg PO Q6H PRN PRN Reason: Pain Last Admin: 04/21/20 09:37 Dose: 500 mg Documented by: Benzocaine/Menthol (Dermoplast Pain Relief 20%-0.5% [place]) 78 gm TOP ASDIRECTED PRN PRN Reason: Perineal Comfort Measure Bisacodyl (Dulcolax) 10 mg RECTAL ONETIME PRN PRN Reason: Constipation Docusate Sodium (Colace) 100 mg PO BID PRN PRN Reason: Constipation Last Admin: 04/20/20 18:48 Dose: 100 mg Documented by: Emollient Ointment (Lansinoh Hpa) 0 gm TOP ASDIRECTED PRN PRN Reason: Sore Nipples Enoxaparin Sodium (Lovenox) 40 mg SUBCUT Q24H [facility] Last Admin: 04/20/20 11:07 Dose: 40 mg Documented by: Tranexamic Acid 1,000 mg/ (Sodium Chloride) 110 mls @ 660 mls/hr IV ONETIME PRN PRN Reason: Bleeding Methylergonovine Maleate (Methergine) 0.2 mg IM ONETIME PRN PRN Reason: Excessive Vaginal Bleeding [place] f [place] (Tucks) 1 pad TOP ASDIRECTED PRN PRN Reason: comfort care Discontinued Medications Acetaminophen (Tylenol Extra Strength) 1,000 mg PO Q4H PRN PRN Reason: Pain Last Admin: 04/21/20 03:04 Dose: 1,000 mg Documented by: Butorphanol Tartrate (Stadol) 1 mg IVPUSH Q1H PRN PRN Reason: Pain Carboprost Tromethamine (Hemabate Ds) 250 mcg IM ASDIRECTED PRN PRN Reason: Post Hemorrhage Fentanyl (Sublimaze) Confirm Administered Dose 100 mcg .ROUTE .STK-MED ONE Stop: 04/19/20 23:12 Lactated Ringer's (Ringers, Lactated) 1,000 mls @ 150 mls/hr IV ASDIRECTED [facility] Last Admin: 04/20/20 03:35 Dose: 125 mls/hr Documented by: Oxytocin/Sodium Chloride (Oxytocin 30 Unit/500 Ml-Ns) 30 unit in 500 mls @ 999 mls/hr IV TITRATE [facility] Last Admin: 04/20/20 04:42 Dose: 999 mls/hr Documented by: Tranexamic Acid 1,000 mg/ (Sodium Chloride) 110 mls @ 660 mls/hr IV ONETIME PRN PRN Reason: Bleeding Vancomycin HCl 1.5 gm/ Sodium (Chloride) 500 mls @ 333.333 mls/hr IV Q8H [facility] Ropivacaine (Naropin 0.2%) Confirm Administered Dose 100 mls @ as directed .ROUTE .STK-MED ONE Stop: 04/19/20 23:12 Vancomycin HCl 1.5 gm/ Sodium (Chloride) 500 mls @ 333.333 mls/hr IV Q8H [facility] Stop: 04/20/20 23:59 Last Admin: 04/20/20 06:40 Dose: 333.333 mls/hr Documented by: Ibuprofen (Motrin) 400 mg PO Q4H PRN PRN Reason: Pain Ibuprofen (Motrin) 800 mg PO Q6H PRN PRN Reason: Pain Lidocaine HCl (Xylocaine 1%) 50 ml INJECT ONETIME PRN PRN Reason: Laceration repair Methylergonovine Maleate (Methergine) 0.2 mg IM ASDIRECTED PRN PRN Reason: Post Hemorrhage Misoprostol (Cytotec) 200 mcg PO ONETIME PRN PRN Reason: Post Hemorrhage Nalbuphine HCl (Nubain) 10 mg IVPUSH Q1H PRN PRN Reason: Pain (severe 7-10) Ondansetron HCl (Zofran Odt) 4 mg PO Q4H PRN PRN Reason: Nausea/Vomiting Sodium Chloride (Saline Flush) 10 ml FLUSH ASDIRECTED PRN PRN Reason: Keep Vein Open Sodium Chloride (Saline Flush) 2.5 ml FLUSH ASDIRECTED PRN PRN Reason: Keep Vein Open Sodium Chloride (Normal Saline) 10 ml IV ASDIRECTED PRN PRN Reason: IV Use Sterile Water (Sterile Water For Irrigation) 1,000 ml IRR ASDIRECTED PRN PRN Reason: delivery - Infant Interaction Disposition, : in Room with Family Infant Interaction: Holding Infant Feeding: Breastfed ; Nursed Well Support Person: - Recovery Exam Fundal Tone: Firm Fundal Level: 1 Fingerbreadths Below Umbilicus Fundal Placement: Midline Lochia Amount: Scant Lochia Color: Rubra/Red Perineum Description: Intact, Minimal Bruising/Swelling Episiotomy/Laceration: None Bladder Status: Voiding Urinary Elimination: Voided - Exam General: Alert, Oriented Lungs: Normal Respiratory Effort GI/Abdominal Exam: Soft, Non-Tender, No Distention Extremities: Non-Tender, No Pedal Edema Skin: Warm, Dry, Intact Neurological: No New Focal Deficit Psy/Mental Status: Alert, Normal Affect, Normal Mood - Problem List & Annotations (1) Vaginal delivery SNOMED Code(s): 279423317 Code(s): O80 - ENCOUNTER FOR FULL-TERM UNCOMPLICATED DELIVERY Status: Acute Current Visit: Yes (2) Severe acute respiratory syndrome coronavirus 2 (SARS-CoV-2) RNA detected SNOMED Code(s): 2333173355167379, [id number] Code(s): U07.1 - COVID-19 Status: Acute Current Visit: Yes - Problem List Review Problem List Initiated/Reviewed/Updated: Yes - My Orders Last 24 Hours: My Active Orders 10/31/20 11:30 Enoxaparin [Lovenox] 40 mg SUBCUT Q24H 04/21/20 08:14 Acetaminophen [Tylenol Extra Strength] 500 mg PO Q6H PRN 04/21/20 09:18 Ready for Discharge [RC] PER UNIT ROUTINE - Assessment Assessment:: PPD#1 after , COVID positive asymptomatic, GBS positive, Vancomycin for prophylaxis, baby will need to stay until tomorrow. - Plan Plan:: Continue care, continue Lovenox rx sent to pharmacy. Anticipate discharge to home tomorrow. Covid precautions reviewed, including isolation strategy to decrease quarantine for .
[2020-04-21] MEDS: Enoxaparin 40 MG/0.4 ML Syringe SUBCUT SCH (14:04)
[2020-04-22] MEDS: Acetaminophen 500 MG Tab PO PRN (06:40)
[2020-04-22 08:23] VITALS: BP 98/55; PULSE 80
--- NOTE | 2020-04-22 09:01 | PCM.PNPP ---
- General Info Date of Service: 04/22/20 Functional Status: Reports: Pain Controlled, Tolerating Diet, Ambulating, Urinating - Review of Systems General: Reports: Fatigue. Denies: Fever, Weakness Pulmonary: Denies: Shortness of Breath Cardiovascular: Denies: Chest Pain, Palpitations, Lightheadedness Gastrointestinal: Reports: Abdominal Pain (cramping). Denies: Nausea, Vomiting Genitourinary: Reports: No Symptoms Musculoskeletal: Reports: No Symptoms Skin: Reports: No Symptoms Neurological: Reports: No Symptoms Psychiatric: Reports: No Symptoms - General Info Date of Service: 04/22/20 - Patient Data Vital Signs - Most Recent: Last Vital Signs Temp 36.6 C 04/22/20 08:00 Pulse 80 04/22/20 08:00 Resp 15 04/22/20 06:45 BP 98/55 L 04/22/20 08:00 Pulse Ox 97 04/22/20 08:00 Weight - Most Recent: 79.379 kg Med Orders - Current: Current Medications Acetaminophen (Tylenol Extra Strength) 500 mg PO Q4H PRN PRN Reason: Pain Acetaminophen (Tylenol Extra Strength) 500 mg PO Q6H PRN PRN Reason: Pain Last Admin: 04/22/20 06:40 Dose: 500 mg Documented by: Benzocaine/Menthol (Dermoplast Pain Relief 20%-0.5% [place]) 78 gm TOP ASDIRECTED PRN PRN Reason: Perineal Comfort Measure Bisacodyl (Dulcolax) 10 mg RECTAL ONETIME PRN PRN Reason: Constipation Docusate Sodium (Colace) 100 mg PO BID PRN PRN Reason: Constipation Last Admin: 04/20/20 18:48 Dose: 100 mg Documented by: Emollient Ointment (Lansinoh Hpa) 0 gm TOP ASDIRECTED PRN PRN Reason: Sore Nipples Enoxaparin Sodium (Lovenox) 40 mg SUBCUT Q24H RYAN Last Admin: 04/21/20 14:04 Dose: 40 mg Documented by: Tranexamic Acid 1,000 mg/ (Sodium Chloride) 110 mls @ 660 mls/hr IV ONETIME PRN PRN Reason: Bleeding Methylergonovine Maleate (Methergine) 0.2 mg IM ONETIME PRN PRN Reason: Excessive Vaginal Bleeding Witch Rita (Tucks) 1 pad TOP ASDIRECTED PRN PRN Reason: comfort care Discontinued Medications Acetaminophen (Tylenol Extra Strength) 1,000 mg PO Q4H PRN PRN Reason: Pain Last Admin: 04/21/20 03:04 Dose: 1,000 mg Documented by: Butorphanol Tartrate (Stadol) 1 mg IVPUSH Q1H PRN PRN Reason: Pain Carboprost Tromethamine (Hemabate Ds) 250 mcg IM ASDIRECTED PRN PRN Reason: Post Hemorrhage Fentanyl (Sublimaze) Confirm Administered Dose 100 mcg .ROUTE .[facility] ONE Stop: 04/19/20 23:12 Lactated Ringer's (Ringers, Lactated) 1,000 mls @ 150 mls/hr IV ASDIRECTED [facility] Last Admin: 04/20/20 03:35 Dose: 125 mls/hr Documented by: Oxytocin/Sodium Chloride (Oxytocin 30 Unit/500 Ml-Ns) 30 unit in 500 mls @ 999 mls/hr IV TITRATE [facility] Last Admin: 04/20/20 04:42 Dose: 999 mls/hr Documented by: Tranexamic Acid 1,000 mg/ (Sodium Chloride) 110 mls @ 660 mls/hr IV ONETIME PRN PRN Reason: Bleeding Vancomycin HCl 1.5 gm/ Sodium (Chloride) 500 mls @ 333.333 mls/hr IV Q8H [facility] Ropivacaine (Naropin 0.2%) Confirm Administered Dose 100 mls @ as directed .ROUTE .[facility] ONE Stop: 04/19/20 23:12 Vancomycin HCl 1.5 gm/ Sodium (Chloride) 500 mls @ 333.333 mls/hr IV Q8H [facility] Stop: 04/20/20 23:59 Last Admin: 04/20/20 06:40 Dose: 333.333 mls/hr Documented by: Ibuprofen (Motrin) 400 mg PO Q4H PRN PRN Reason: Pain Ibuprofen (Motrin) 800 mg PO Q6H PRN PRN Reason: Pain Lidocaine HCl (Xylocaine 1%) 50 ml INJECT ONETIME PRN PRN Reason: Laceration repair Methylergonovine Maleate (Methergine) 0.2 mg IM ASDIRECTED PRN PRN Reason: Post Hemorrhage Misoprostol (Cytotec) 200 mcg PO ONETIME PRN PRN Reason: Post Hemorrhage Nalbuphine HCl (Nubain) 10 mg IVPUSH Q1H PRN PRN Reason: Pain (severe 7-10) Ondansetron HCl (Zofran Odt) 4 mg PO Q4H PRN PRN Reason: Nausea/Vomiting Sodium Chloride (Saline Flush) 10 ml FLUSH ASDIRECTED PRN PRN Reason: Keep Vein Open Sodium Chloride (Saline Flush) 2.5 ml FLUSH ASDIRECTED PRN PRN Reason: Keep Vein Open Sodium Chloride (Normal Saline) 10 ml IV ASDIRECTED PRN PRN Reason: IV Use Sterile Water (Sterile Water For Irrigation) 1,000 ml IRR ASDIRECTED PRN PRN Reason: delivery - Infant Interaction Infant Disposition, : in Room with Family Interaction: Holding Infant Feeding: Breastfed ; Nursed Well Support Person: - Recovery Exam Fundal Tone: Firm Fundal Level: At Umbilicus Fundal Placement: Midline Lochia Amount: Scant Lochia Color: Rubra/Red Perineum Description: Intact, Minimal Bruising/Swelling Episiotomy/Laceration: None Bladder Status: Voiding Urinary Elimination: Voided - Exam General: Alert, Oriented Lungs: Normal Respiratory Effort Cardiovascular: Regular Rate, Regular Rhythm GI/Abdominal Exam: Normal Bowel Sounds, Soft Extremities: Pedal Edema (trace). No: Christopher's Sign Skin: Warm, Dry, Intact Neurological: No New Focal Deficit Psy/Mental Status: Alert, Normal Affect, Normal Mood - Problem List & Annotations (1) Severe acute respiratory syndrome coronavirus 2 (SARS-CoV-2) RNA detected SNOMED Code(s): 1123747665131219, 470938246 Code(s): U07.1 - COVID-19 Status: Acute Current Visit: Yes (2) Vaginal delivery SNOMED Code(s): 175640331 Code(s): O80 - ENCOUNTER FOR FULL-TERM UNCOMPLICATED DELIVERY Status: Acute Current Visit: Yes - Problem List Review Problem List Initiated/Reviewed/Updated: Yes - Assessment Assessment:: PPD#2 after , COVID positive asymptomatic, - Plan Plan:: Patient is doing well overall--discharge to home today. Continue with plan of LMWH as issued by Dr Kerr. Bleeding and infection warnings reviewed. Continue isolation as directed. She is to call with any concerns or questions. Follow up at [facility] 4 weeks.
--- NOTE | 2020-04-22 09:46 | OR ---
SURGEON: Ayleen Kerr M.D. DATE OF PROCEDURE: 04/20/2020 PREOPERATIVE DIAGNOSES: 38-2/7 weeks' intrauterine , active spontaneous labor, SARS-CoV positive, group B Strep positive. POSTOPERATIVE DIAGNOSES: 38-2/7 weeks' intrauterine , active spontaneous labor, SARS-CoV positive, group B Strep positive. PROCEDURE: Term spontaneous vaginal delivery. Group B strep prophylaxis. PRIMARY SURGEON: Ayleen Kerr M.D. ANESTHESIA: Epidural. ESTIMATED BLOOD LOSS: Less than 200 mL. FINDINGS: Liveborn male, score of 9 and 9, weight is pending at the time of dictation. Placenta was spontaneous with retained membranes. Manual extraction of placental membranes. There were no perineal lacerations. COMPLICATIONS: None known. DISPOSITION: Mother and baby in LDR in good condition. BRIEF HISTORY: This is a 30-year-old female, G4, P1-0-2-1. She presents at 38-/7 weeks' gestation in active spontaneous labor. She had spontaneous rupture of membranes. A large blood clot was noted at the time of rupture of membranes. However, throughout the rest of labor, she did not have any further bleeding. She had category 1 heart tones. She did test positive for SARS-CoV PCR and was placed in contact and respiratory precautions. She progressed to complete. DESCRIPTION OF PROCEDURE: With the patient in dorsal lithotomy position, the patient pushed to a 5+ station, at which time the head was delivered spontaneously and atraumatically over the perineum with support, with subsequent delivery of the 's shoulders and body. The was handed to the mother in the presence of nursing at delivery. The infant was a liveborn male, score of 9 and 9. Weight pending. After 1 minute, the cord was doubly clamped and cut and the was handed to the mother. Attempts were made to collect cord blood for cord ABGs. However, the blood was clotted in the cord. Cord blood was also collected for routine cord blood sampling, and as the cord was milked it was noted that the blood was clotted. The placenta delivered spontaneously, Schultze with the placenta itself intact, but with the membranes retained and therefore manual extraction was performed of the placental membranes. She had been on vancomycin for group B strep prophylaxis and this will be continued for a total of 3 doses. Final sponge, needle, and instrument counts were correct. There were no known complications. Mother and baby remained in isolation with the father in LDR. JURGEN LOGAN /[id number]
[2020-04-22] MEDS: Enoxaparin 40 MG/0.4 ML Syringe SUBCUT SCH (11:56)
== END 2020-04-22 12:25 | disposition home or self-care (01) | DRG 805 ==
LOC: MW.OBCHECK 21:59 → MW.OB 22:01 → MW.OBCHECK 22:50 → OBSVTOIN 04-20 04:41 → MW.OB 04-20 09:05
PROVIDERS: ADMIT Obstetrics & Gynecology; ATTEND Obstetrics & Gynecology
PROC: 10E0XZZ Delivery of Products of Conception, External Approach (ICD-10-PCS; principal; 2020-04-20)
PROC: 10907ZC Drainage of Amniotic Fluid, Therapeutic from Products of Conception, Via Natural or Artificial Opening (ICD-10-PCS; 2020-04-20)
PROC: 3E0R3BZ Introduction of Anesthetic Agent into Spinal Canal, Percutaneous Approach (ICD-10-PCS; 2020-04-20)
DX: O99.52 Diseases of the respiratory system complicating childbirth (principal); U07.1 COVID-19; Z37.0 Single live birth; Z3A.38 38 weeks gestation of pregnancy; O99.824 Streptococcus B carrier state complicating childbirth
CPT/HCPCS: 01967; 36415; 51702; 59025; 59409; 85014; 85018; 85027; 86592; 86850; 86900; 86901; A9270-GY; J1650; J2590; J2795; J3010; J3370; J7040; J7120; U0002